=== PATIENT | male | born 1995 | race Two or more races ===

== ENCOUNTER 2016-11-07 16:11 | Emergency (ER) | payer MEDICAID ==
[~2016-11-07] VITALS: Ht 185.4 cm; Wt 59.1 kg
[2016-11-07] MEDS ORDERED: IBUPROFEN 600 MG TABLET PO ONE (19:45)
[2016-11-07 20:00] VITALS: BP 98/60
== END 2016-11-07 20:54 | disposition home or self-care (01) ==
LOC: EMS 16:13
DX: M94.0 Chondrocostal junction syndrome [Tietze] (principal); R07.81 Pleurodynia; F12.90 Cannabis use, unspecified, uncomplicated
CPT/HCPCS: 93005; 99285

== ENCOUNTER 2016-11-25 19:26 | Emergency (ER) | payer MEDICAID ==
[~2016-11-25] VITALS: Ht 185.4 cm; Wt 64.0 kg
[2016-11-25] MEDS ORDERED: PEN G PROCAINE/PEN G BENZ CR 1,200,000 UNITS/2 ML SYG IM ONE (21:45)
[2016-11-25] MEDS ORDERED: DEXAMETHASONE SOD PHOS 4 MG/ML 5 ML VIAL IM ONE (21:45)
[2016-11-25 22:00] VITALS: BP 118/82
== END 2016-11-25 22:15 | disposition home or self-care (01) ==
LOC: EMS 20:33
DX: J02.0 Streptococcal pharyngitis (principal); F17.210 Nicotine dependence, cigarettes, uncomplicated; F12.90 Cannabis use, unspecified, uncomplicated; F14.90 Cocaine use, unspecified, uncomplicated
CPT/HCPCS: 87430; 96372; 99284; J0558; J1100

== ENCOUNTER 2016-12-02 17:06 | Emergency (ER) | payer MEDICAID ==
[~2016-12-02] VITALS: Ht 185.4 cm; Wt 59.0 kg
[2016-12-02 19:02] LABS: BASOPHILS % (AUTO) 0.2 % (0.0-2.0); EOSINOPHILS % (AUTO) 0.1 % (1.0-6.0); HEMATOCRIT 42.1 % (41-53); HEMOGLOBIN 14.4 g/dL (13.5-17.5); LYMPHOCYTES % (AUTO) 11.1 % (22.0-44.0); MEAN CORPUSCULAR HEMOGLOBIN 30.5 pg (26.0-34.0); MEAN CORPUSCULAR HGB CONC 34.2 G/dL (31.0-37.0); MEAN CORPUSCULAR VOLUME 89 fL (80-100); MONOCYTES # (AUTO) 0.9 K/uL (0.1-1.0); MONOCYTES % (AUTO) 9.7 % (2.0-9.0); NEUTROPHILS # (AUTO) 7.3 K/uL (1.8-7.7); NEUTROPHILS % (AUTO) 78.9 % (40.0-70.0); PLATELET COUNT (AUTO) 288 K/uL (150-450); RED BLOOD CELL COUNT(AUTO) 4.71 MIL/uL (4.50-5.90); RED CELL DISTRIBUTION WIDTH 13.7 % (11.5-14.5); WHITE BLOOD COUNT (AUTO) 9.3 K/uL (4.5-11.0)
[2016-12-02 19:19] LABS: ANION GAP 9 mmol/L (8-16); CALCIUM, TOTAL 8.8 mg/dL (8.8-10.5); CARBON DIOXIDE 26 mmol/L (22-29); CHLORIDE 98 mmol/L (98-107); CREATININE 1.05 mg/dL (0.60-1.30); GLOMERULAR FILTR. RATE CALC > 60 mL/min (>60); POTASSIUM 3.8 mmol/L (3.5-5.1); SODIUM SERUM 133 mmol/L (136-145); UREA NITROGEN, BLOOD 9 mg/dL (7-18)
[2016-12-02 19:25] LABS: ALANINE AMINOTRANSFERASE 11 U/L (12-78); ALBUMIN 3.2 g/dL (3.4-5.0); ASPARTATE AMINOTRANSFERASE 12 U/L (15-37); BILIRUBIN,TOTAL 0.4 mg/dL (0.1-1.0); TOTAL PROTEIN, SERUM 7.5 g/dL (6.4-8.2)
[2016-12-02] MEDS ORDERED: HYDROCODONE/ACETAMINOPHEN 5-325 MG TABLET PO ONE (19:45)
[2016-12-02] MEDS ORDERED: ACETAMINOPHEN 325 MG TABLET PO ONE (19:45)
[2016-12-02] MEDS ORDERED: DONNATAL/LIDOCAINE/MAALOX 55 ML BOTTLE PO ONE (20:15)
[2016-12-02 20:44] VITALS: BP 101/58
== END 2016-12-02 21:09 | disposition home or self-care (01) ==
LOC: EMS 17:08
DX: K12.0 Recurrent oral aphthae (principal); F12.90 Cannabis use, unspecified, uncomplicated; F14.90 Cocaine use, unspecified, uncomplicated; F17.210 Nicotine dependence, cigarettes, uncomplicated
CPT/HCPCS: 36415; 80053; 85025; 99284; Z7610

== ENCOUNTER 2019-06-30 11:03 | Emergency (ER) | payer SELFPAY ==
[~2019-06-30] VITALS: Ht 185.4 cm; Wt 60.5 kg
[2019-06-30 11:33] VITALS: BP 125/74
[2019-06-30] MEDS ORDERED: BENZOCAINE/MENTHOL LOZENGE PO ONE (11:45)
[2019-06-30] MEDS ORDERED: KETOROLAC TROMETHAMINE 30 MG/ML VIAL IM ONE (11:45)
[2019-07-01] MEDS ORDERED: AMOX1TAB15 PO (14:33)
[2019-07-01] MEDS ORDERED: ACET-66 PO (14:33)
[2019-07-01] MEDS ORDERED: AMOX500C2 PO (14:50)
== END 2019-06-30 12:29 | disposition home or self-care (01) ==
LOC: EMS 11:03
DX: J02.0 Streptococcal pharyngitis (principal); F12.90 Cannabis use, unspecified, uncomplicated; F14.90 Cocaine use, unspecified, uncomplicated; F17.210 Nicotine dependence, cigarettes, uncomplicated
CPT/HCPCS: 87430; 96372; 99283; 99406; J1885

== ENCOUNTER 2019-07-01 14:30 | Emergency (ER) | payer SELFPAY ==
[~2019-07-01] VITALS: Ht 183.5 cm; Wt 59.0 kg
[2019-07-01] MEDS ORDERED: AMOX1TAB15 PO (14:33)
[2019-07-01] MEDS ORDERED: ACET-66 PO (14:33)
[2019-07-01] MEDS ORDERED: KETOROLAC TROMETHAMINE 30 MG/ML VIAL ONE (14:45)
[2019-07-01] MEDS ORDERED: SODIUM CHLORIDE 0.9% 1,000 ML IV ONE (14:45)
[2019-07-01] MEDS ORDERED: DEXAMETHASONE SOD PHOS 4 MG/ML 5 ML VIAL IVP ONE (14:45)
[2019-07-01] MEDS ORDERED: ACETAMINOPHEN 500 MG TABLET PO ONE (14:45)
[2019-07-01] MEDS ORDERED: AMOX500C2 PO (14:50)
[2019-07-01] MEDS ORDERED: KETOROLAC TROMETHAMINE 30 MG/ML VIAL IVP ONE ×2 (15:00→16:45)
[2019-07-01 15:17] LABS: BASOPHILS % (AUTO) 0.3 % (0.0-2.0); EOSINOPHILS % (AUTO) 0 % (1.0-6.0); HEMATOCRIT 43.8 % (41-53); HEMOGLOBIN 14.9 g/dL (13.5-17.5); LYMPHOCYTES % (AUTO) 10.1 % (22.0-44.0); MEAN CORPUSCULAR HEMOGLOBIN 30.5 pg (26.0-34.0); MEAN CORPUSCULAR VOLUME 90 fL (80-100); MONOCYTES # (AUTO) 1.2 K/uL (0.1-1.0); MONOCYTES % (AUTO) 12.5 % (2.0-9.0); NEUTROPHILS # (AUTO) 7.3 K/uL (1.8-7.7); NEUTROPHILS % (AUTO) 77.1 % (40.0-70.0); PLATELET COUNT (AUTO) 210 K/uL (150-450); RED BLOOD CELL COUNT(AUTO) 4.89 MIL/uL (4.50-5.90)
[2019-07-01 15:31] LABS: ANION GAP 15 mmol/L (8-16); CALCIUM, TOTAL 9.9 mg/dL (8.8-10.5); CARBON DIOXIDE 24 mmol/L (22-29); CHLORIDE 91 mmol/L (98-107); CREATININE 1.12 mg/dL (0.60-1.30); GLOMERULAR FILTR. RATE CALC > 60 mL/min (>60); GLUCOSE,RANDOM 108 mg/dL (70-110); POTASSIUM 3.5 mmol/L (3.5-5.1); SODIUM SERUM 130 mmol/L (136-145); UREA NITROGEN, BLOOD 12 mg/dL (7-18)
[2019-07-01 15:58] LABS: FERRITIN 588 ng/mL (26-388)
[2019-07-01 15:59] LABS: C-REACTIVE PROTEIN QUANT 24.56 mg/dL (0.00-0.30); CREATINE KINASE, TOTAL ONLY 172 U/L (39-308)
[2019-07-01 16:01] LABS: APPEARANCE,URINE CLOUDY (CLEAR); GLUCOSE, URINE (UA) NEGATIVE (NEGATIVE); KETONES,URINE 15 mg/dL (NEGATIVE); LEUKOCYTE ESTERASE ,URINE NEGATIVE (NEGATIVE); NITRATE,URINE NEGATIVE (NEGATIVE); OCCULT BLOOD,URINE NEGATIVE (NEGATIVE); PH,URINE 5.5 (5.0-8.0); PROTEIN,URINE SEE CONFIRM (NEGATIVE)
[2019-07-01 16:02] LABS: BILIRUBIN,URINE PRELIM. POSITIVE (NEGATIVE)
[2019-07-01 16:13] LABS: BACTERIA,URINE Few /HPF (None Seen); RBC,URINE 0-2 /HPF (0-2); SQUAMOUS EPITHELIAL CELL,UR Rare /LPF (None Seen); SULFOSALICYLIC ACID,URINE 2+ (Negative); WBC,URINE 0-2 /HPF (0-5)
[2019-07-01 16:33] VITALS: BP 114/66
== END 2019-07-01 17:50 | disposition home or self-care (01) ==
LOC: EMS 14:32
DX: J02.9 Acute pharyngitis, unspecified (principal); R11.10 Vomiting, unspecified; F12.90 Cannabis use, unspecified, uncomplicated; F14.90 Cocaine use, unspecified, uncomplicated; F17.210 Nicotine dependence, cigarettes, uncomplicated; Z79.899 Other long term (current) drug therapy; Z03.818 Encounter for observation for suspected exposure to other biological agents ruled out
CPT/HCPCS: 36415; 80048; 81001; 82550; 82728; 83735; 84145; 85025; 86140; 87635; 96361; 96374; 96375; 96376; 99284; J1100; J1885; J7030

== ENCOUNTER 2019-07-08 09:32 | Emergency (ER) | payer SELFPAY ==
[~2019-07-08] VITALS: Ht 182.9 cm; Wt 63.6 kg
[~2019-07-08 09:32] MED LIST: ACET-66 PO; AMOX500C2 PO
[2019-07-08] MEDS ORDERED: MUPIROCIN CALCIUM 2% 22 GM OINTMENT TP ONE (10:00)
[2019-07-08] MEDS ORDERED: DOXYCYCLINE HYCLATE 100 MG CAPSULE PO ONE (10:00)
[2019-07-08 10:51] VITALS: BP 106/54
[2019-07-09] MEDS ORDERED: DOXY100C PO (08:23)
[2019-07-09] MEDS ORDERED: MUPI15CR12 TP (10:32)
[2019-07-09] MEDS ORDERED: CLOB15OI TP (21:50)
== END 2019-07-08 10:49 | disposition home or self-care (01) ==
LOC: EMS 09:33
DX: L01.02 Bockhart's impetigo (principal); F17.210 Nicotine dependence, cigarettes, uncomplicated; F12.90 Cannabis use, unspecified, uncomplicated; F14.90 Cocaine use, unspecified, uncomplicated
CPT/HCPCS: 87070; 87205

== ENCOUNTER 2019-07-09 08:20 | Inpatient (IN) | payer SELFPAY ==
[~2019-07-09] VITALS: Ht 185.4 cm; Wt 59.1 kg
[2019-07-09] MEDS ORDERED: DOXY100C PO (08:23)
[2019-07-09] MEDS ORDERED: ONDANSETRON HCL 4 MG/2 ML VIAL IVP ONE ×2 (09:00→11:45)
[2019-07-09] MEDS ORDERED: MORPHINE SULFATE 4 MG/ML SYRINGE IVP ONE ×2 (09:00→11:45)
[2019-07-09] MEDS ORDERED: SODIUM CHLORIDE 0.9% 1,000 ML IV ONE (09:00)
[2019-07-09 09:35] LABS: BASOPHILS % (AUTO) 0.7 % (0.0-2.0); EOSINOPHILS % (AUTO) 0.5 % (1.0-6.0); HEMOGLOBIN 13.8 g/dL (13.5-17.5); LYMPHOCYTES # (AUTO) 1.5 K/uL (1.0-4.8); LYMPHOCYTES % (AUTO) 14.6 % (22.0-44.0); MEAN CORPUSCULAR HEMOGLOBIN 30.1 pg (26.0-34.0); MEAN CORPUSCULAR HGB CONC 33.6 G/dL (31.0-37.0); MEAN CORPUSCULAR VOLUME 90 fL (80-100); MONOCYTES # (AUTO) 0.8 K/uL (0.1-1.0); NEUTROPHILS # (AUTO) 7.9 K/uL (1.8-7.7); NEUTROPHILS % (AUTO) 76.2 % (40.0-70.0); PLATELET COUNT (AUTO) 397 K/uL (150-450); RED BLOOD CELL COUNT(AUTO) 4.58 MIL/uL (4.50-5.90); RED CELL DISTRIBUTION WIDTH 13.4 % (11.5-14.5)
[2019-07-09 09:44] LABS: ANION GAP 10 mmol/L (8-16); CALCIUM, TOTAL 9.9 mg/dL (8.8-10.5); CARBON DIOXIDE 27 mmol/L (22-29); CHLORIDE 99 mmol/L (98-107); CREATININE 0.95 mg/dL (0.60-1.30); GLOMERULAR FILTR. RATE CALC > 60 mL/min (>60); GLUCOSE,RANDOM 91 mg/dL (70-110); POTASSIUM 3.9 mmol/L (3.5-5.1); SODIUM SERUM 136 mmol/L (136-145); UREA NITROGEN, BLOOD 11 mg/dL (7-18)
[2019-07-09 09:50] LABS: ALANINE AMINOTRANSFERASE 19 U/L (12-78); ALBUMIN 3.9 g/dL (3.4-5.0); ALKALINE PHOSPHATASE 88 U/L (46-116); ASPARTATE AMINOTRANSFERASE 15 U/L (15-37); BILIRUBIN,TOTAL 0.5 mg/dL (0.1-1.0); TOTAL PROTEIN, SERUM 8.6 g/dL (6.4-8.2)
[2019-07-09 09:58] LABS: LACTIC ACID 2.8 mmol/L (0.4-2.0)
[2019-07-09 10:09] LABS: VANCOMYCIN,RANDOM < 0.1 mcg/mL (25.0-50.0)
[2019-07-09 10:17] LABS: C-REACTIVE PROTEIN QUANT 10.51 mg/dL (0.00-0.30)
[2019-07-09] MEDS ORDERED: MUPI15CR12 TP (10:32)
[2019-07-09] MEDS ORDERED: VANCOMYCIN HCL 1 GM/D5% WATER 200 ML IV ONE (10:45)
[2019-07-09] MEDS ORDERED: SODIUM CHLORIDE 0.9% 2,000 ML IV ONE (10:45)
[2019-07-09] MEDS ORDERED: 0.9% SODIUM CHLORIDE 10 ML SYRINGE IVP PRN (11:00)
[2019-07-09] MEDS ORDERED: ACETAMINOPHEN 325 MG TABLET PO PRN (11:00)
[2019-07-09] MEDS ORDERED: ONDANSETRON HCL 4 MG/2 ML VIAL IVP PRN (11:00)
[2019-07-09 13:23] VITALS: BP 100/54
[2019-07-09] MEDS: MORPHINE SULFATE 2 MG/ML SYRINGE IVP PRN ×2 (13:33→21:14)
[2019-07-09 15:36] VITALS: BP 132/66
[2019-07-09 20:55] VITALS: BP 109/71
[2019-07-09] MEDS: CLOBETASOL 0.05% 15 GM CREAM TP SCH ×2 (21:00→21:15)
[2019-07-09] MEDS ORDERED: CLOB15OI TP (21:50)
[2019-07-09 22:30] VITALS: BP 109/71
[2019-07-11 05:10] LABS: HIV 1-2 SCREEN 4TH GEN W/RFLX Non Reactive (Non Reactive)
== END 2019-07-09 22:55 | disposition home or self-care (01) | DRG 603 ==
LOC: EMS 08:21 → 6N 11:40 → EMS 12:49
PROVIDERS: ADMIT Hospitalist; ATTEND Hospitalist
DX: L08.0 Pyoderma (principal); L03.90 Cellulitis, unspecified; F17.210 Nicotine dependence, cigarettes, uncomplicated; Z82.49 Family history of ischemic heart disease and other diseases of the circulatory system; Z83.3 Family history of diabetes mellitus
CPT/HCPCS: 83605; 86140; 87040; 87389; J2270; J2405; J3370; J7030